=== PATIENT | male | born 1960 | race Caucasian/White ===

== ENCOUNTER 2016-07-25 08:28 | Day surgery (SDC) | payer OTHER ==
[2016-07-25] MEDS ORDERED: SUCCINYLCHOLINE CHLORIDE 20 MG/ML SOL IV ONE (09:56)
[2016-07-25] MEDS ORDERED: ROCURONIUM BROMIDE 10 MG/ML SOL IV ONE (09:56)
[2016-07-25 11:06] VITALS: O2SAT 95
[2016-07-25 11:07] VITALS: PULSE 74
[2016-07-25 11:33] VITALS: BP 127/87; RESP 18; TEMP 97.7
== END 2016-07-25 12:06 | disposition home or self-care (01) ==
LOC: SURG 08:28
PROVIDERS: ATTEND Surgery
DX: R10.13 Epigastric pain (principal); Q39.8 Other congenital malformations of esophagus; K25.9 Gastric ulcer, unspecified as acute or chronic, without hemorrhage or perforation
CPT/HCPCS: 43239; 76705 ×2; 99001; J2001; J0330; J2704